=== PATIENT | male | born 1975 | race Two or more races ===

== ENCOUNTER 2016-10-12 13:32 | Emergency (ER) | payer SELFPAY ==
[~2016-10-12] VITALS: Ht 177.8 cm; Wt 108.0 kg
[2016-10-12 13:42] VITALS: Ht 177.8 cm; Wt 108.0 kg
== END 2016-10-12 22:16 | disposition left against medical advice (07) ==
LOC: E/R 13:32
DX: Z53.21 Procedure and treatment not carried out due to patient leaving prior to being seen by health care provider (principal)